=== PATIENT | male | born 1980 | race African-American/Black ===

== ENCOUNTER 2017-07-01 08:34 | Emergency (ER) | payer OTHER ==
[~2017-07-01] VITALS: Ht 167.6 cm; Wt 83.9 kg
[~2017-07-01 08:34] MED LIST: AMOXICILLIN; DOXYCYCLINE PO; IBUPROFEN800 MG PO; NAPROXEN; PEN-VEE K PO; PENICILLIN PO; PROVENTIL17 GM IH; TUSSINMAX15 MG/5 ML PO; TYLENOL #3 PO; ULTRAM PO; ZITHROMAX1 G/PKT PO
[2017-07-01 09:15] LABS: URINE SOURCE CLEAN CATCH
[2017-07-01 09:33] LABS: URINE APPEARANCE CLEAR; URINE BILIRUBIN NEG (NEG); URINE BLOOD 1+ (NEG); URINE COLOR YELLOW; URINE GLUCOSE NEG (NEG); URINE KETONE NEG (NEG); URINE LEUKOCYTE ESTERASE NEG (NEG); URINE NITRATE NEG (NEG); URINE PROTEIN NEG (NEG); URINE SPECIFIC GRAVITY 1.024 (1.003-1.035); URINE UROBILINOGEN 0.2 MG/DL (NEG)
[2017-07-01 09:36] LABS: U HYALINE CASTS AUWI 0-2 /[LPF]; URBCS1 AUWI 0-2 /[HPF] (0-2); URINE BACTERIA AUWI NEG (NEGATIVE); URINE SQUAMOUS EPITHELIAL CELL NONE SEEN /[HPF]; UWBCS1 AUWI 0-2 (0-5)
[2017-07-01 09:37] LABS: CULTURE INDICATED? NO
[2017-07-05 19:40] LABS: CHLAMYDIA TRACH Not Detected (Not Detected); N GONOR Not Detected (Not Detected)
== END 2017-07-01 09:17 | disposition home or self-care (01) ==
LOC: CED 08:34
PROVIDERS: Student in an Organized Health Care Education/Training Program
DX: Z20.2 Contact with and (suspected) exposure to infections with a predominantly sexual mode of transmission (principal); F17.200 Nicotine dependence, unspecified, uncomplicated
CPT/HCPCS: 81003; 87491; 87591; 96372; 99283; J0696